=== PATIENT | female | born 1985 | race Caucasian/White ===

== ENCOUNTER 2018-11-28 08:59 | Day surgery (SDC) | payer OTHER ==
[~2018-11-28] VITALS: Ht 171.4 cm; Wt 150.4 kg
[~2018-11-28 08:59] MED LIST: FERR-89 PO; SODIUM CHLORIDE 0.9% 1,000 ML IV ONE
[2018-11-28] MEDS ORDERED: PROPOFOL 1% 20 ML VIAL IVP ONE (09:00)
[2018-11-28] MEDS ORDERED: SODIUM CHLORIDE 0.9% 1,000 ML IV ONE (09:35)
== END 2018-11-28 12:35 | disposition home or self-care (01) ==
LOC: SURGERY 08:59
PROVIDERS: ATTEND Internal Medicine Gastroenterology
DX: K29.50 Unspecified chronic gastritis without bleeding (principal); D50.9 Iron deficiency anemia, unspecified; E66.01 Morbid (severe) obesity due to excess calories; K21.9 Gastro-esophageal reflux disease without esophagitis; Z98.890 Other specified postprocedural states; Z68.43 Body mass index [BMI] 50.0-59.9, adult
CPT/HCPCS: 36415; 43239; 45378; 84702; 88305; 88312; 88313; C1769; J2704; J7030